=== PATIENT | female | born 1985 | race Caucasian/White ===

== ENCOUNTER 2022-09-12 22:31 | Emergency (ER) | payer MEDICAID ==
[~2022-09-12] VITALS: Ht 160 cm; Wt 54.4 kg
[2022-09-12 22:35] VITALS: BP 120/70
--- NOTE | 2022-09-12 23:54 | NUR ---
PT AMBULATED TO BED #6
--- NOTE | 2022-09-13 00:06 | NUR ---
SOB ON AND OFF FOR A MONTH. PT IS ALERT AND ORIENTED X 4. AMBULTORY.
[2022-09-13 01:15] VITALS: BP 120/70
--- NOTE | 2022-09-13 01:17 | NUR ---
Patient discharged with v/s stable. Written and verbal after care instructions given and explained. Patient verbalized understanding. Ambulatory with steady gait. All questions addressed prior to discharge. Advised to follow up with PMD. PT LEFT WITH HER BELONGINGS
== END 2022-09-13 01:17 | disposition home or self-care (01) ==
LOC: MED 22:31
DX: R06.02 Shortness of breath (principal)
CPT/HCPCS: 71045; 99283